=== PATIENT | female | born 1965 | race Caucasian/White ===

== ENCOUNTER 2019-06-30 12:13 | Emergency (ER) | payer OTHER ==
[~2019-06-30] VITALS: Ht 177.8 cm; Wt 93.1 kg
[2019-06-30 13:37] VITALS: BP 138/74
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
== END 2019-06-30 15:32 | disposition home or self-care (01) ==
LOC: ER 12:13
DX: G89.11 Acute pain due to trauma (principal); M25.512 Pain in left shoulder; M25.552 Pain in left hip; Z88.5 Allergy status to narcotic agent; V89.2XXA Person injured in unspecified motor-vehicle accident, traffic, initial encounter; Y93.89 Activity, other specified; Y92.413 State road as the place of occurrence of the external cause; Y99.8 Other external cause status
CPT/HCPCS: 73030; 73502; 99284